=== PATIENT | female | born 1965 | race African-American/Black ===

== ENCOUNTER 2018-05-11 16:15 | Emergency (ER) | payer OTHER ==
[~2018-05-11] VITALS: Ht 162.6 cm; Wt 108.2 kg
[~2018-05-11 16:15] MED LIST: CIPRO500 MG PO; FLAGYL500 MG PO; NAPROSYN500 MG PO; NEXIUM40 MG PO; NORCO 5/3251 TABLET PO; OXYCODONE HCL5 MG PO; PERCOCET 5/31 TABLET PO; VITAMIN D1000 UNIT PO; ZOFRAN4 MG PO
[2018-05-11] MEDS ORDERED: FIORICET 50-301 EAC1 PO (20:06)
[2018-05-11 20:13] VITALS: BP 122/76
== END 2018-05-11 20:17 | disposition home or self-care (01) ==
LOC: EME 16:15
DX: S06.0X0A Concussion without loss of consciousness, initial encounter (principal); V49.40XA Driver injured in collision with unspecified motor vehicles in traffic accident, initial encounter; Y92.410 Unspecified street and highway as the place of occurrence of the external cause; G43.909 Migraine, unspecified, not intractable, without status migrainosus; K21.9 Gastro-esophageal reflux disease without esophagitis; Z98.84 Bariatric surgery status; Z88.5 Allergy status to narcotic agent; Z88.6 Allergy status to analgesic agent
CPT/HCPCS: 70450; 99281; 99285; J1885